=== PATIENT | male | born 1985 | race Caucasian/White ===

== ENCOUNTER 2021-06-19 23:06 | Emergency (ER) | payer BC ==
[2021-06-19 23:24] VITALS: O2SAT 100
[2021-06-20 00:06] LABS: Amphetamine,Urine NEGATIVE (NEGATIVE); Barbiturate,Urine NEGATIVE (NEGATIVE); Benzodiazepine,Urine NEGATIVE (NEGATIVE); Cocaine,Urine NEGATIVE (NEGATIVE); Methadone,Urine NEGATIVE (NEGATIVE); Opiate,Urine NEGATIVE (NEGATIVE); PCP,Urine NEGATIVE (NEGATIVE); THC,Urine NEGATIVE (NEGATIVE)
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
[2021-06-20 00:30] VITALS: BP 113/85; PULSE 77
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
== END 2021-06-20 00:38 | disposition home or self-care (01) ==
LOC: ED 23:06
DX: S93.402A Sprain of unspecified ligament of left ankle, initial encounter (principal); V53.5XXA Driver of pick-up truck or van injured in collision with car, pick-up truck or van in traffic accident, initial encounter; Y93.89 Activity, other specified; Y92.9 Unspecified place or not applicable; Y99.0 Civilian activity done for income or pay; M25.572 Pain in left ankle and joints of left foot
CPT/HCPCS: 36415; 73610; 80307; 99285; G0480